=== PATIENT | male | born 1985 | race Caucasian/White ===

== ENCOUNTER 2018-08-31 19:31 | Emergency (ER) | payer OTHER ==
[~2018-08-31] VITALS: Ht 182.9 cm; Wt 88.5 kg
[2018-08-31] MEDS ORDERED: OXYBUTYNIN 5 MG5 M2 PO (20:18)
[2018-08-31] MEDS ORDERED: ZOLOFT25 MG PO (20:18)
[2018-08-31] MEDS ORDERED: OMEPRAZOLE20 MG PO (20:19)
[2018-08-31] MEDS ORDERED: MULTIVITAMINS1 EAC7 PO (20:19)
[2018-08-31 20:31] LABS: ABSOLUTE NEUTROPHILS 7.5 thou/uL (1.4-8.2); BASOPHILS 0.8 % (0.0-2.0); EOSINOPHILS 2.4 % (0.0-3.0); HEMATOCRIT 44.3 % (42.0-52.0); HEMOGLOBIN 15.4 gm/dL (14.0-18.0); MCH 32.2 pg (26.0-34.0); MCHC 34.8 g/dL (28.0-37.0); MCV 92.6 fL (80.0-100.0); MONOCYTES 8.3 % (1.0-8.0); PLATELET COUNT 156 thou/uL (150-400); POLYS 72.5 % (36.0-66.0); RBC 4.78 mil/uL (4.50-6.00); RDW 12.9 % (10.5-14.5); WBC 10.4 thou/uL (4.0-11.0)
[2018-08-31 20:39] LABS: ANION GAP 12 mmol/L (7-16); BUN 21 mg/dL (7-18); CALCIUM 10.1 mg/dL (8.5-10.1); CHLORIDE 103 mmol/L (98-107); CO2 25 mmol/L (21-32); CREATININE 1.2 mg/dL (0.7-1.3); GLUCOSE 117 mg/dL (74-106); POTASSIUM 3.5 mmol/L (3.5-5.1); SODIUM 140 mmol/L (136-145)
[2018-08-31 20:49] LABS: TROPONIN-I <0.06 ng/mL (<0.06)
[2018-08-31] MEDS ORDERED: NAPROSYN500 MG PO (21:07)
[2018-08-31 21:55] VITALS: BP 119/61
--- NOTE | 2018-09-01 08:36 | EKG ---
[address] [address] ELECTROCARDIOGRAM REPORT Name: SUNIL MEYERS Room #: [id number] ������������������ Admission: 08/31/18 ������������������ Attend Phys: Discharge: 08/31/18 ������������������ Date of : 85 Report #: [id number] ����������������������������������������������������������������� [id number] THIS REPORT FOR: //name// [facility] ED Test Date: 2018-08-31 Test Time: 19:39:53 Pat Name: SUNIL MEYERS Department: Room: Gender: Residential Substance Abuse Counselor: Nikolas ROBERTSON : 1985 Requested By: Abhijit Shahid Order Number: [id number] MD: Tyree Corley Measurements Intervals [place] Rate: 57 P: 70 OR: 136 QRS: 53 QRSD: 88 T: 63 QT: 370 QTc: 361 Interpretive Statements Sinus rhythm No previous ECG available for comparison Electronically Signed On 09-01-2018 8:36:36 [employer] by Tyree Corley [email or web address] ��������������������������������������������� <ELECTRONICALLY SIGNED> ���������������������������������������� By: Tyree Corley MD ��������������������������������������������� 09/01/18 0836 1939 38 Tyree Corley MD /OLGA
== END 2018-08-31 21:55 | disposition home or self-care (01) ==
LOC: ER 19:31
PROVIDERS: Emergency Medicine
DX: R07.89 Other chest pain (principal)